=== PATIENT | male | born 1990 | race Caucasian/White ===

== ENCOUNTER 2019-04-13 08:42 | Day surgery (SDC) | payer OTHER ==
[~2019-04-13 08:42] MED LIST: CEFAZOLIN 1 GM/50 ML (PMX) 50 ML IVPB
[2019-04-13] MEDS: SOD CHLORIDE 0.9% 1,000 ML IV (09:40)
[2019-04-13] MEDS ORDERED: ACETAMINOPHEN 500 MG TAB (10:19)
[2019-04-13] MEDS: ACETAMINOPHEN 500 MG TAB PO (10:23)
[2019-04-13] MEDS ORDERED: OXYCODONE/ACETAMINOPHEN (5/325) TAB PO ×2 (10:30)
[2019-04-13] MEDS ORDERED: morphine 2 MG INJ IV ×2 (10:30)
[2019-04-13] MEDS ORDERED: HYDROmorphONE 1 MG/5 ML IV SYRINGE IV ×3 (10:30)
[2019-04-13] MEDS ORDERED: MEPERIDINE 25 MG INJ IV (10:30)
[2019-04-13] MEDS ORDERED: DIPHENHYDRAMINE 50 MG INJ IV (10:30)
[2019-04-13] MEDS ORDERED: ONDANSETRON 4 MG INJ IV (10:30)
[2019-04-13] MEDS ORDERED: FENTAnyl 50 MCG/ML VIAL IV ×2 (10:30)
[2019-04-13] MEDS ORDERED: LABETALOL HCL 20MG INJ IV (10:30)
[2019-04-13] MEDS ORDERED: ALBUTEROL 0.083% (NEB) 2.5 MG/3 ML AMP HHN (10:30)
[2019-04-13] MEDS ORDERED: EPHEDrine 25 MG/5 ML SYG IV (10:30)
[2019-04-13] MEDS ORDERED: GLYCOPYRROLATE 0.4 MG INJ (10:30)
[2019-04-13] MEDS ORDERED: hydrALAzine 20 MG INJ IV (10:30)
[2019-04-13] MEDS ORDERED: CEFAZOLIN 1 GM INJ (10:32)
[2019-04-13] MEDS ORDERED: PROPOFOL 40 ML (10:32)
[2019-04-13] MEDS ORDERED: LIDOCAINE 2% (SDV) 5 ML INJ (10:32)
[2019-04-13] MEDS ORDERED: ONDANSETRON 4 MG INJ (10:33)
[2019-04-13] MEDS ORDERED: MIDAZOLAM 1 MG/ML 2 ML INJ (10:33)
[2019-04-13] MEDS ORDERED: FENTAnyl 50 MCG/ML VIAL (10:33)
[2019-04-13] MEDS ORDERED: FAMOTIDINE 20 MG INJ (10:33)
[2019-04-13] MEDS: BUPIVACAINE 0.5%/EPI (SDV) 30 ML INJ (11:17)
== END 2019-04-13 13:40 | disposition home or self-care (01) ==
LOC: SDS 08:42
DX: D17.1 Benign lipomatous neoplasm of skin and subcutaneous tissue of trunk (principal); D17.22 Benign lipomatous neoplasm of skin and subcutaneous tissue of left arm; R19.00 Intra-abdominal and pelvic swelling, mass and lump, unspecified site; R22.32 Localized swelling, mass and lump, left upper limb
CPT/HCPCS: 22902; 88307